=== PATIENT | female | born 1990 | race Two or more races ===

== ENCOUNTER 2025-08-31 07:49 | Outpatient (CLI) | payer OTHER ==
[2025-08-31 08:37] LABS: BASO % 0.6 % (0.1-1.2); EOS # 0.08 (0.04-0.54); EOS % 2.4 % (0.7-7.0); LYMPH # 1.36 (1.18-3.74); LYMPH % 41.2 % (19.3-53.1); MEAN PLATELET VOLUME 9.20 fl (9.4-12.4); MONO # 0.28 (0.24-0.82); MONO % 8.5 % (4.7-12.5); NEUT # 1.56 (1.56-6.13); NEUT % 47.3 % (34.0-71.1); RED CELL DISTRIBUTION WIDTH 17.7 % (11.6-14.4)
[2025-08-31 09:41] LABS: ALT/SGPT 15.0 U/L (12-78); AST/SGOT 15.0 U/L (15-37); BILIRUBIN TOTAL 0.41 mg/dL (0.3-1.2); BUN CREA RATIO 14.0 (7.0-25.0); CHOL HDL RATIO 2.5 (0-5.0); CREATININE SERUM 0.87 mg/dL (0.55-1.02); FE 17.0 ug/dl (50-170); GFR 74.53; GLOBULINA 3.4 G/DL (2.4-3.5); GLUCOSE FASTING 83.0 mg/dL (65-100); HDL 63.0 mg/dl (40-60); LDL 79.0 mg/dl (0-130); OSMOLALITY SERUM 282.0 MOSM/KG (275-295); T4 TOTAL 8.42 UG/DL (4.8-13.9); TSH 2.43 uIU/mL (0.358-3.74); VLDL 15.0 (0-39)
[2025-08-31 14:15] LABS: FOLIC ACID 16.59 ng/ml (4.78-20); T3 TOTAL 1.27 ng/ml (0.846-2.02); VITAMIN D3 25 HYDROXY 27.27 ng/ml (30-120)
== END 2025-08-31 07:52 | disposition home or self-care (01) ==
LOC: LAB 07:49
PROVIDERS: ATTEND Surgery
DX: D46.4 Refractory anemia, unspecified (principal); E11.9 Type 2 diabetes mellitus without complications; E03.9 Hypothyroidism, unspecified; E54 Ascorbic acid deficiency; E83.51 Hypocalcemia; E55.9 Vitamin D deficiency, unspecified; D51.9 Vitamin B12 deficiency anemia, unspecified; R19.5 Other fecal abnormalities; Z11.59 Encounter for screening for other viral diseases

== ENCOUNTER 2025-08-31 08:19 | Outpatient (CLI) | payer OTHER | END 2025-08-31 08:35 | disposition home or self-care (01) | LOC: TOM 08:19 | PROVIDERS: ATTEND Surgery | DX: K43.9 Ventral hernia without obstruction or gangrene (principal) ==

== ENCOUNTER 2025-09-08 07:12 | Outpatient (CLI) | payer OTHER ==
[2025-09-08 08:04] LABS: BASO % 0.7 % (0.1-1.2); EOS # 0.06 (0.04-0.54); EOS % 2.2 % (0.7-7.0); LYMPH # 1.33 (1.18-3.74); LYMPH % 48.2 % (19.3-53.1); MEAN PLATELET VOLUME 9.40 fl (9.4-12.4); MONO # 0.23 (0.24-0.82); MONO % 8.3 % (4.7-12.5); NEUT # 1.11 (1.56-6.13); NEUT % 40.2 % (34.0-71.1); RED CELL DISTRIBUTION WIDTH 17.5 % (11.6-14.4)
[2025-09-08 08:41] LABS: ALT/SGPT 15.0 U/L (12-78); AST/SGOT 13.0 U/L (15-37); BILIRUBIN TOTAL 0.46 mg/dL (0.3-1.2); BUN CREA RATIO 12.0 (7.0-25.0); CREATININE SERUM 0.95 mg/dL (0.55-1.02); FE 18.0 ug/dl (50-170); GFR 67.34; GLOBULINA 3.3 G/DL (2.4-3.5); GLUCOSE FASTING 76.0 mg/dL (65-100); OSMOLALITY SERUM 279.0 MOSM/KG (275-295)
== END 2025-09-08 07:18 | disposition home or self-care (01) ==
LOC: LAB 07:12
PROVIDERS: ATTEND Internal Medicine Hematology & Oncology
DX: D50.8 Other iron deficiency anemias (principal)